=== PATIENT | female | born 1955 | race Caucasian/White ===

== ENCOUNTER 2022-03-30 05:42 | Emergency (ER) | payer MEDICARE, OTHER ==
[2022-03-30] MEDS ORDERED: Bacitracin 1 PK ONE (05:58)
[2022-03-30] MEDS ORDERED: Boostrix 0.5 ML (Tdap) VIAL (>/=7 yrs of age) ONE (05:58)
== END 2022-03-30 06:10 | disposition home or self-care (01) ==
LOC: NAV ERS 05:42
DX: T20.24XA Burn of second degree of nose (septum), initial encounter (principal); T26.01XA Burn of right eyelid and periocular area, initial encounter; I10 Essential (primary) hypertension; X08.8XXA Exposure to other specified smoke, fire and flames, initial encounter
CPT/HCPCS: 16020; 90471; 90715